=== PATIENT | female | born 2000 | race Caucasian/White ===

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

== ENCOUNTER → 2021-09-21 02:23 | Outpatient (CLI) | payer OTHER, SELFPAY ==
--- NOTE | 2021-09-21 09:30 | DI.US_ITS ---
APPROVED REPORT EXAM: Comprehensive 2D, Doppler, and color-flow Echocardiogram Patient Location: Out-Patient Cigar Tobacco Rehandler: Judy Medrano RDCS (AE) Indications: Bioprosthetic aortic valve, Chest pain, SOB Other Information Study Quality: Good Conclusion Normal left ventricular wall thickness and chamber size. Estimated ejection fraction is 60 to 65%. Wall motion is normal Normal right ventricular size and systolic function Both atria are normal in size There is an aortic valve bioprosthesis. Appearance and function appear normal. Mean gradient is 12. 4 mmHg. There is no aortic regurgitation There is no additional structural or hemodynamically significant valvular disease Wall motion Left Ventricle The left ventricle is normal size. The left ventricular systolic function is normal. The left ventric ular ejection fraction is within the normal range. There is normal left ventricular wall thickness. T here is normal LV segmental wall motion. There is no ventricular septal defect visualized. LVEF is 60 -65%. Right Ventricle The right ventricle is normal size. The right ventricular systolic function is normal. The RVSP is 17 .4 mmHg. Atria The left atrium size is normal. The right atrium size is normal. The interatrial septum is intact wit h no evidence for an atrial septal defect. Aortic Valve Aortic valve is trileaflet. Mean gradient is 12.4 No aortic regurgitation is present. Bioprosthetic a ortic valve is present. Mitral Valve The mitral valve is normal in structure. No evidence of mitral valve stenosis. Trace mitral regurgita tion. Tricuspid Valve The tricuspid valve is normal in structure. There is no tricuspid valve stenosis. Trace tricuspid reg urgitation. Pulmonic Valve The pulmonary valve is normal in structure. There is no pulmonic valvular stenosis. Trace to mild pul mian regurgitation. Great Vessels The aortic root is normal in size. The ascending aorta is normal in size. Aortic arch is normal in ca liber. IVC is normal in size and collapses >50% with inspiration. Pericardium There is no pericardial effusion. 2D Dimensions IVSD d PLAX 0.76 cm F: 0.6-1.0 LV Vol A2C d MOD 71.4 mL LVPW d PLAX 0.79 cm F: 0.6 - 1.0 LV Vol A4C d MOD 89.5 mL LVID d PLAX 4.70 cm F: 3.8 - 5.2 LA vol/ BSA A2C s A-L 17.2 mL/m2 LVDs 3.00 cm F: 2.2 - 3.5 LA vol/ BSA A4C s A-L 18.6 mL/m2 Ao Root d 2.36 cm F: 2.7 - 3.3 LA Vol/ BSA Biplane s A-L 19.9 mL/m2 RA Area A4C 11.68 cm2 LA Area A4C s MOD 12.55 cm2 RA Vol/ BSA A4C s A-L 18.3 mL/m2 LA Area A2C s MOD 10.86 cm2 Ao Asc Diam d 2.99 cm F: 2.3 - 3.1 LV EF A4C MOD 60.3 % LV EF Teichholz 65.3 % LV EF A2C MOD 65.2 % LVEF (Oreilly's) 62.87 % F: 54 - 74 LV EF Biplane MOD 62.9 % LV Volume 66.30 mL F: 46 - 106 SV 50.47 mL LV Volume Index 43.33 mL/m2 F: 29 - 61 SV Index 32.90 mL/m2 LV Vol Biplane MOD 80.3 mL FS 35.80 % M-Mode TAPSE 1.55 cm (M/F) >1.7 LV Diastology MV E' medial 0.078 (>0.07 m/s) E/A Ratio 2.2 LV E/e MED 15.15 (<14) MV E Vmax 1.19 (0.4-1.3 m/s) MV E' lateral 0.136 (>0.1 m/s) MV A Vmax 0.55 (0.4-1.3 m/s) LV E/e LAT 8.75 (<14) MV E/A Ratio 2.06 MV E/E' medial 15.19 MV E/E' lateral 8.76 Aortic Valve LVOT Area 3.07 cm2 AoV Area Vmax 2.11 cm2 LVOT Vmax 1.62 m/s AoV Area/ BSA (Vmax) 1.37 cm2/m2 LVOT Mean Arnoldo. 1.08 m/s ABHI Mean Arnoldo. 2.00 cm2 LVOT Peak Grad 10.5 mmHg ABHI Mean Arnoldo. Index 1.30 cm2/m2 LVOT Mean Grad 5.5 mmHg LVOT VTI 0.343 m LVOT Diam s 1.95 cm AoV Vmax 2.36 m/s Velocity Ratio 0.68 AoV Mean Arnoldo. 1.66 m/s AoV Peak Grad 22.3 mmHg LVOT SV 105.36 mL AoV Mean Grad 12.4 mmHg AoV VTI 0.472 m AoV Area VTI 2.23 cm2 AoV Area/ BSA (VTI) 1.45 cm/m2 Mitral Valve MV DT 177 (160-240 msec) MV PHT 51 msec MV Area PHT 4.29 cm2 MV VTI 0.304 m MV Area VTI 3.46 (4.0-6.0 cm2) Pulmonary Valve PV Vmax 1.06 (0.5-1.5 m/s) RVOT Peak Gr. 2.25 mmHg PV Peak Grad 4.5 mmHg RVOT Mean Gr. 1.25 mmHg PV Mean Grad 2.2 mmHg RVOT VTI 0.166 m PV VTI 0.234 m RVOT Vmax 0.75 m/s Tricuspid Valve TR Peak Grad 14.3 mmHg TR Vmax 1.90 m/s RA Pressure 3.00 mmHg RVSP (TR) 17.4 mmHg
== END ==
PROVIDERS: PCP Internal Medicine; Visit Provider Nurse Practitioner Family
DX: Z95.3 Presence of xenogenic heart valve (principal); R07.89 Other chest pain; R06.02 Shortness of breath
CPT/HCPCS: 93306

== ENCOUNTER 2022-03-02 14:54 | Emergency (ER) | payer OTHER, SELFPAY ==
[2022-03-02] VITALS (19 sets, daily range): BP systolic 107–123; BP diastolic 69–80; PULSE 60–80; RESP 13–24; TEMP 36.9; O2SAT 97–100
--- NOTE | 2022-03-02 14:45 | RT.EKG_ITS ---
APPROVED REPORT Exam: Resting ECG Reason for Exam: Chest pain Patient Location: E HR:69 bpm ECG Measurements Heart Rate 69 AXIS MN 156 P 40 QRSd 93 QRS 61 QT 391 T -21 QTc 420 Conclusion Sinus rhythm...normal P axis, V-rate 60- 99 Nonspecific T abnormalities, anterior leads...T <-0.10mV, V2-V4
--- NOTE | 2022-03-02 15:30 | DI.RAD_ITS ---
Exam(s) XR PORTABLE CHEST AP EXAM: XR PORTABLE CHEST AP CLINICAL HISTORY: chest pain, hx of aortic valve replacement TECHNIQUE: 2D digital imaging was performed. COMPARISON: CR XR CHEST 2V PA LATERAL from 05/02/2020 FINDINGS: LUNGS: Clear. No pleural abnormality seen. HEART: Enlarged, unchanged. Valve prosthesis noted. AORTA: Normal diameter. BONES: Unremarkable for age. Soft tissues: Unremarkable. IMPRESSION: No acute findings. DATA REPOSITORY: RADIATION DOSE DELIVERED:
--- NOTE | 2022-03-02 15:33 | ED.GENADUL_ITS ---
Discharge Plan Disposition Patient Disposition: Home Condition: Improving Discharge Details Chief Complaint: Chest Pain Clinical Impression: Chest pain Primary Care Provider: Hansel Coleman ED Provider: Rafael Sawyer Home Meds and New Rx's Prescriptions: No Action aspirin 81 mg tablet,delayed release (DR/EC) 81 mg PO DAILY ibuprofen 200 mg capsule 200 mg PO Q6H PRN amoxicillin 500 mg tablet 1,500 mg PO .COMPLEX Rx Instructions: 1,500 mg PO; 1 hour prior to dental work ciclopirox 8 % solution 1 applic topical DAILY 90 Days Qty: 6.6 5RF Rx Instructions: Apply to affected toenails daily. Discharge Instructions Instructions: Chest Pain (ED) Additional Instructions: Please follow-up closely with your primary cardiology/cardiothoracic team at [facility]; please return to the emergency department for any worsening symptoms. Medical Decision Making 21-year-old female history of congenital bicuspid aortic valve, status post 2 bioprosthetic valve replacements most recently at the age of 11, performed at [facility] continues to follow with cardiology and cardiothoracic team presents with 2 days of nonexertional anterior chest pain pressure-like in nature rating into the left neck and left arm. Patient is hemodynamically stable resting comfortably no respiratory distress lungs clear bilaterally no peripheral edema. Strong equal bilateral radial pulses. Bedside ultrasound showing normal ejection fraction, normal-appearing mitral valve, normal- appearing aortic root however not able to definitively visualize movement/coaptation of aortic valve; no pericardial effusion. EKG sinus rhythm normal axis T wave inversions lead III as well as V1 through V4 no prior EKGs in the system, have asked patient and patient's mother to see if they could access their portal through [facility] to see if we can obtain a comparison EKG. Have ordered basic labs, troponin, EKG and chest x-ray. Lower suspicion for ACS, at this time no evidence of valvular failure such as heart murmur fluid overload or hypotension, low suspicion for PE pneumonia or pneumothorax. Have screened patient for anxiety and depression, does not endorse any undue stress at home or in other aspects of her life, denies drug use. Consider musculoskeletal versus anxiety versus pleurisy versus costochondritis. Disposition pending screening labs and imaging. Likely will advise close follow-up with primary cardiac team. Mother endorses that inspector salvage wanted a lipid panel drawn this week so I will add that to patient's current work-up. 16: 32 resting comfortably no acute distress hemodynamically stable, labs and imaging largely unremarkable. Consider anterior T wave inversions normal for age. Given home care instructions and strict return precautions for any persistent or worsening signs and symptoms. Encourage patient family to follow- up closely with her primary cardiac team at [facility] General Date/Time Provider Initiated Documentation: 03/02/22 15:04 . HPI Narrative: 21-year-old female history of congenital bicuspid aortic valve status post 2 prior bioprosthetic valve replacements on a daily aspirin, presents with 2 days of chest pain nonexertional anterior pressure-like in nature rating into neck and left arm. Denies leg swelling or pain. Denies history of thromboembolic disease. Denies exogenous estrogen use. Follows at [facility] with cardiology and cardiothoracic team. Related Data Home Medications Medication Instructions Recorded Confirmed amoxicillin 500 mg tablet 1,500 mg PO .COMPLEX 07/10/19 03/02/22 aspirin 81 mg tablet,delayed 81 mg PO DAILY 07/10/19 03/02/22 release ibuprofen 200 mg capsule 200 mg PO Q6H PRN 07/10/19 03/02/22 ciclopirox 8 % topical solution 1 applic topical DAILY 02/15/22 03/02/22 onychomycosis 3 months #6.6 mL Previous Rx's Medication Instructions Recorded ciclopirox 8 % topical solution 1 applic topical DAILY 02/15/22 onychomycosis 3 months #6.6 mL Allergies Allergy/AdvReac Type Severity Reaction Status Date / Time No Known Allergies Allergy Verified 03/02/22 15:08 General Stated Complaint: Chest Pain ESTELLE: 2 Review of Systems Narrative: Review of Systems Constitutional: negative Eyes: negative ENT: negative Cardiovascular: Chest pain Respiratory: negative Gastrointestinal: negative : negative Musculoskeletal: negative Skin: negative Neurologic: negative Psych: negative PFSH All Active Problems (Updated 03/02/22 @ 16:35 by Rafael Sawyer MD) Chest pain (Acute) Pain, foot (Acute) Nail dystrophy (Acute) Congenital aortic valve anomaly (Chronic) valve re-replacement 04/2020, No LVH and ventricular function normal Needs SBE prophylaxis aat times of increased risk Migraine with aura (Chronic) Fibroadenoma of breast (Acute) Ingrown left greater toenail (Acute) Medical History (Updated 03/02/22 @ 16:35 by Rafael Sawyer MD) Abdominal pain Bicuspid aortic valve Chest pain, mid sternal Conductive hearing loss, bilateral (11/26/13) Dysfunction of eustachian tube (11/26/13) Left breast lump Serous otitis media (11/26/13) Sore throat Surgical History (Updated 02/15/22 @ 09:40 by Althea Banegas RN) H/O aortic valve replacement (~04/2020) w/ bioprosthetic valve Social History (Updated 03/08/20 @ 09:22 by Gabriella Yañez MD) Smoking/Tobacco Use Status: Never Smoking risk assessment performed?: Yes Alcohol Intake: never Drug use: Never Substance use type: does not use current occupation: in college at [employer] Current gender identity: female Do you feel safe at home: Yes Do you feel safe in your relationship?: Yes Exam Narrative Exam Narrative: Physical Examination General: alert, awake, cooperative, resting comfortably, no acute distress HEENT: normocephalic, atraumatic; PERRL, EOM intact, conjunctiva normal; no nasal discharge; moist mucous membranes, oral and pharyngeal mucosa normal, tolerating secretions Neck: supple, trachea midline; full ROM Chest: normal to inspection Respiratory: normal respiratory effort, speaking in full sentences, clear to auscultation, no wheezing, rales or rhonchi Cardiac: regular rate, regular rhythm, S1S2 intact; equal radial pulses GI: abdomen soft, non-tender, non-distended; no palpable mass or hepatosplenomegaly Skin: no lesions, rashes or trauma appreciated Neuro: AAOx3, normal speech, moving all extremities Extremities: No peripheral edema Psych: Appropriate mood and affect Course Vital Signs Vital signs: Vital Signs Temperature 36.9 C 03/02/22 15:03 Pulse 75 03/02/22 15:03 Respiratory Rate 18 03/02/22 15:03 Blood Pressure 123/77 03/02/22 15:03 Pulse Oximetry 99 03/02/22 15:03 Temperature 36.9 C 03/02/22 15:03 Temperature Source Skin 03/02/22 15:03 Pulse 80 03/02/22 15:11 Pulse 65 03/02/22 15:20 Respiratory Rate 21 03/02/22 15:20 Respiratory Effort 03/02/22 15:14 Respiratory Depth Normal 03/02/22 15:14 Respiratory Pattern Normal 03/02/22 15:14 Blood Pressure 110/76 03/02/22 15:16 Blood Pressure Mean 85 03/02/22 15:16 Blood Pressure Position Sitting 03/02/22 15:03 Pulse Oximetry 100 03/02/22 15:20 Oxygen Delivery Method Room Air 03/02/22 15:03 Oxygen Flow Rate 0 03/02/22 15:03 Pain Level 3 03/02/22 15:14
[2022-03-02 15:51] LABS: Abs Immature Grans 0.01 10^3/uL (0.0-0.06); Absolute Basophil Count 0.04 10^3/uL (0.0-0.2); Absolute Eosinophil Count 0.05 10^3/uL (0.0-0.7); Absolute Lymphocyte Count 2.52 10^3/uL (1.2-3.4); Absolute Monocyte Count 0.38 10^3/uL (0.1-0.8); Absolute Neutrophil Count 2.24 10^3/uL (1.2-6.7); Basophils % 0.8; HCT 39.3 % (36.0-46.0); HGB 13.2 g/dL (11.2-15.7); Immature Grans % 0.2; Lymphocytes % 48.1; MCH 31.1 pg (27.0-33.0); MCHC 33.6 % (32.0-36.0); MCV 93 fL (80-95); MPV 10.6 fL (8.0-11.0); Monocytes % 7.3; Neutrophils % 42.6; Platelet Count 261 10^3/uL (130-400); RBC 4.24 10^6/uL (3.93-5.22); RDW 12.4 % (11.7-14.6); RDW-SD 42.5 fL; WBC 5.24 10^3/uL (4.4-10.8)
[2022-03-02 16:06] LABS: ALT 14 U/L (14-59); AST 19 U/L (15-37); Albumin 4.5 g/dL (3.4-5.0); Alkaline Phosphatase 53 U/L (46-116); Anion Gap 8.3 mmol/L (3-11); BUN 7 mg/dL (7-18); Bilirubin, Total 0.6 mg/dL (0.2-1.0); CO2 27.7 mmol/L (21.0-32.0); CREATININE 0.6 mg/dL (0.55-1.02); Calcium 8.9 mg/dL (8.5-10.1); Calculated LDL 95 mg/dL (<100); Chloride 105 mmol/L (98-107); Cholesterol 163 mg/dL (<200); Glucose 97 mg/dL (74-106); HDL Cholesterol 54 mg/dL (40-60); Potassium 3.8 mmol/L (3.5-5.1); Sodium 141 mmol/L (136-145); Triglyceride 74 mg/dL (<150)
[2022-03-02 16:09] LABS: Troponin I < 50 ng/L (<or=60)
== END 2022-03-02 16:42 | disposition home or self-care (01) ==
PROVIDERS: Emergency Provider Emergency Medicine; PCP Internal Medicine
DX: R07.89 Other chest pain (principal)
CPT/HCPCS: 36415; 80053; 80061; 93005; 99283; 71045; 84484; 85025; 93010; 99284

== ENCOUNTER 2022-08-09 11:35 | Outpatient (REF) | payer OTHER, SELFPAY ==
--- NOTE | 2022-08-09 13:15 | PAPFT_PTH ---
PATIENT: Ananya Strange LOC: [facility]#:[id number] AGE/SX: 22/F ROOM: RE08/09/[address]: Mariah Ovalle : 2000 BED: DIS: 08/09/2022 SPEC #: [id number] RECD: 08/10/22 13:01 STATUS: TAMMIE SINGH #: [id number] DAYSI: 08/09/22 13:[address]: Mariah Ovalle DEPT: [facility] Cytology RECD BY: Alison Lopez ENTERED: 08/10/22 13:01 SP TYPE: PAPFT OTHR DR: Hansel Coleman Tissues: 1 - CX/ENDOCX FOR PAP SMEARS Procedures: PAP THIN PREP/UVM Screening Comments: [id number] (CHLAMYDIA/GC)
[2022-08-13 14:00] LABS: Chlamydia Result Negative (Negative); GC Result Negative (Negative)
== END 2022-08-09 11:36 | disposition home or self-care (01) ==
LOC: NCHCN 11:35
PROVIDERS: PCP Internal Medicine; Visit Provider Nurse Practitioner Family
DX: Z11.3 Encounter for screening for infections with a predominantly sexual mode of transmission (principal); Z00.00 Encounter for general adult medical examination without abnormal findings; Z12.4 Encounter for screening for malignant neoplasm of cervix
CPT/HCPCS: 87491; 87591; 88142